=== PATIENT | male | born 1955 | race Caucasian/White ===

== ENCOUNTER 2019-03-26 22:02 | Emergency (ER) | payer SELFPAY ==
[~2019-03-26] VITALS: Ht 180.3 cm; Wt 117.9 kg
[2019-03-26 22:04] VITALS: BP 158/78
--- NOTE | 2019-03-26 22:38 | NUR ---
patient seen and cleared for discharge by Dr. Garcia. No assessment completed or nursing care provided.
[2019-03-26 22:40] VITALS: BP 158/78
--- NOTE | 2019-03-26 22:41 | NUR ---
Patient discharged with v/s stable. Written and verbal after care instructions given and explained. Patient verbalized understanding. Ambulatory with steady gait, in custody accompanied by nay GAMBINO. All questions addressed prior to discharge. Advised to follow up with PMD.
== END 2019-03-26 22:41 ==
LOC: MED 22:02
DX: Z04.1 Encounter for examination and observation following transport accident (principal); Z02.89 Encounter for other administrative examinations; Z98.890 Other specified postprocedural states; V89.2XXA Person injured in unspecified motor-vehicle accident, traffic, initial encounter; Y93.89 Activity, other specified; Y92.89 Other specified places as the place of occurrence of the external cause; Y99.8 Other external cause status
CPT/HCPCS: 99283

== ENCOUNTER 2020-04-22 12:11 | Inpatient (IN) | payer MEDICAID, SELFPAY ==
[~2020-04-22] VITALS: Ht 182.9 cm; Wt 117.9 kg
[2020-04-22 12:20] VITALS: BP 145/78
[2020-04-22] MEDS ORDERED: NACL 0.9% 1,000 ML IV ONE (12:40)
[2020-04-22] MEDS ORDERED: ACETAMINOPHEN EXTRA STRENGTH 500 MG TAB PO ONE (12:40)
[2020-04-22 13:12] LABS: BASOPHILS # (AUTO) 0.1 K/uL (0.00-0.22); BASOPHILS % (AUTO) 0.6 % (0.0-2.0); EOSINOPHILS # (AUTO) 0.1 K/uL (0-0.4); EOSINOPHILS % (AUTO) 0.8 % (0.0-4.0); LYMPHOCYTES # (AUTO) 1.8 K/uL (2.0-11.5); LYMPHOCYTES % (AUTO) 17.8 % (20.5-51.1); MEAN CORPUSCULAR HEMOGLOBIN 32 pg (27-31); MEAN CORPUSCULAR HGB CONC 34 g/dL (33-37); MEAN CORPUSCULAR VOLUME 93.8 fL (80-94); MONOCYTES # (AUTO) 0.6 K/uL (0.8-1.0); MONOCYTES % (AUTO) 6.2 % (1.7-9.3); NEUTROPHILS # (AUTO) 7.5 K/uL (1.8-7.7); NEUTROPHILS % (AUTO) 74.6 % (42.2-75.2); PLATELET COUNT (AUTO) 112 K/uL (140-450); WHITE BLOOD COUNT (AUTO) 10.1 K/uL (4.8-10.8)
[2020-04-22 13:18] LABS: HEMATOCRIT 16.9 % (36-52); HEMOGLOBIN 5.8 g/dL (12.0-18.0)
[2020-04-22 13:24] LABS: ALBUMIN 2.5 g/dL (3.4-5.0); ANION GAP 13.5 (8-16); CARBON DIOXIDE 22.9 mmol/L (21-32); CREATININE 1.1 mg/dL (0.6-1.3); POTASSIUM 4.4 mmol/L (3.5-5.1); TOTAL BILIRUBIN 0.4 mg/dL (0.0-1.0)
[2020-04-22 15:22] LABS: PROTHROMBIN TIME 12.3 secs (10.8-13.4)
[2020-04-22] MEDS ORDERED: SODIUM PHOS / POTASSIUM PHOS 1 PKT PDR PO PRN (16:45)
[2020-04-22] MEDS: DEXT 5% /NACL 0.9% 1,000 ML IV SCH (16:45)
[2020-04-22] MEDS ORDERED: ONDANSETRON 4 MG/2 ML VIAL IM/IVP PRN (16:45)
[2020-04-22] MEDS: PANTOPRAZOLE 40 MG TABEC PO SCH (16:45)
[2020-04-22] MEDS ORDERED: HYDROcodone/APAP 5/325 MG 1 TAB TAB PO PRN (16:45)
[2020-04-22] MEDS ORDERED: ACETAMINOPHEN 325 MG TAB PO PRN (16:45)
[2020-04-22] MEDS ORDERED: DOCUSATE SODIUM 100 MG GELCAP PO PRN (16:45)
[2020-04-22] MEDS ORDERED: MAG SULF 2000 MG/WATER PREMIX 50 ML IV PRN (16:45)
[2020-04-22] MEDS ORDERED: MORPHINE SULFATE 2 MG/ML SYR IVP PRN (16:45)
[2020-04-22] MEDS ORDERED: POTASSIUM CHLORIDE 40 MEQ, LIDOCAINE MPF 1% 25 MG in NACL 0.9% 250 ML IV PRN (16:45)
[2020-04-22 17:07] LABS: MAGNESIUM 1.7 mg/dL (1.8-2.4); PHOSPHORUS 2.8 mg/dL (2.5-4.9)
[2020-04-22] MEDS ORDERED: MAG SULF 2000 MG/WATER PREMIX 50 ML IV SCH (18:40)
[2020-04-22 21:14] LABS: BASOPHILS # (AUTO) 0.2 K/uL (0.00-0.22); BASOPHILS % (AUTO) 1.5 % (0.0-2.0); EOSINOPHILS # (AUTO) 0.1 K/uL (0-0.4); EOSINOPHILS % (AUTO) 0.5 % (0.0-4.0); LYMPHOCYTES # (AUTO) 1.4 K/uL (2.0-11.5); LYMPHOCYTES % (AUTO) 13.5 % (20.5-51.1); MEAN CORPUSCULAR HEMOGLOBIN 30 pg (27-31); MEAN CORPUSCULAR HGB CONC 33 g/dL (33-37); MEAN CORPUSCULAR VOLUME 90.3 fL (80-94); MONOCYTES # (AUTO) 0.6 K/uL (0.8-1.0); MONOCYTES % (AUTO) 5.8 % (1.7-9.3); NEUTROPHILS # (AUTO) 8.3 K/uL (1.8-7.7); NEUTROPHILS % (AUTO) 78.7 % (42.2-75.2); PLATELET COUNT (AUTO) 98 K/uL (140-450); RED BLOOD CELL COUNT(AUTO) 1.85 MIL/uL (4.20-6.10); RED CELL DISTRIBUTION WIDTH 18.8 % (11.6-13.7); WHITE BLOOD COUNT (AUTO) 10.6 K/uL (4.8-10.8)
[2020-04-22 21:19] LABS: HEMATOCRIT 16.7 % (36-52); HEMOGLOBIN 5.5 g/dL (12.0-18.0)
[2020-04-22] MEDS ORDERED: OCTREOTIDE ACETATE 1000 MCG/5 ML VIAL ONE (21:36)
[2020-04-22] MEDS ORDERED: MIRTAZAPINE 15 MG TAB ONE (22:01)
[2020-04-22] MEDS: OCTREOTIDE ACETATE 1.25 MG in NACL 0.9% 250 ML IV SCH (22:49)
[2020-04-23 04:49] VITALS: BP 151/53
[2020-04-23] MEDS: DEXT 5% /NACL 0.9% 1,000 ML IV SCH (05:15)
[2020-04-23 07:42] LABS: ANION GAP 11.7 (8-16); CARBON DIOXIDE 25.9 mmol/L (21-32); POTASSIUM 4.6 mmol/L (3.5-5.1)
[2020-04-23 08:00] VITALS: BP 98/50
[2020-04-23 08:01] LABS: BASOPHILS % (AUTO) 0.3 % (0.0-2.0); EOSINOPHILS # (AUTO) 0.1 K/uL (0-0.4); EOSINOPHILS % (AUTO) 0.7 % (0.0-4.0); LYMPHOCYTES # (AUTO) 1.8 K/uL (2.0-11.5); LYMPHOCYTES % (AUTO) 18.4 % (20.5-51.1); MEAN CORPUSCULAR HEMOGLOBIN 31 pg (27-31); MEAN CORPUSCULAR HGB CONC 34 g/dL (33-37); MONOCYTES # (AUTO) 0.7 K/uL (0.8-1.0); MONOCYTES % (AUTO) 6.9 % (1.7-9.3); NEUTROPHILS # (AUTO) 7.2 K/uL (1.8-7.7); NEUTROPHILS % (AUTO) 73.7 % (42.2-75.2); PLATELET COUNT (AUTO) 93 K/uL (140-450); RED BLOOD CELL COUNT(AUTO) 2.02 MIL/uL (4.20-6.10); RED CELL DISTRIBUTION WIDTH 18.3 % (11.6-13.7); WHITE BLOOD COUNT (AUTO) 9.7 K/uL (4.8-10.8)
[2020-04-23 08:07] LABS: HEMATOCRIT 18.2 % (36-52); HEMOGLOBIN 6.2 g/dL (12.0-18.0)
[2020-04-23] MEDS: PANTOPRAZOLE 40 MG TABEC PO SCH ×2 (08:59→21:22)
[2020-04-23] MEDS ORDERED: MIDAZOLAM 5 MG/5 ML VIAL ONE (09:18)
[2020-04-23] MEDS ORDERED: MIDAZOLAM 2 MG/2 ML VIAL ONE (09:18)
[2020-04-23] MEDS ORDERED: diphenhydrAMINE 50 MG/ML VIAL ONE (09:19)
[2020-04-23] MEDS ORDERED: fentaNYL citrate 0.05 MG/ML VIAL ONE (09:19)
[2020-04-23] MEDS ORDERED: fentaNYL citrate 0.05 MG/ML VIAL IVP ONE (10:45)
[2020-04-23] MEDS ORDERED: MIDAZOLAM 2 MG/2 ML VIAL IVP ONE (10:45)
[2020-04-23] MEDS ORDERED: LACTATED RINGERS 1,000 ML IV ONE (10:50)
[2020-04-23] MEDS ORDERED: MIDAZOLAM 2 MG/2 ML VIAL IVP SCH (11:15)
[2020-04-23] MEDS ORDERED: fentaNYL citrate 0.05 MG/ML VIAL IVP SCH (11:15)
[2020-04-23 12:00] VITALS: BP 147/63
[2020-04-23 12:16] LABS: BASOPHILS % (AUTO) 0.2 % (0.0-2.0); EOSINOPHILS # (AUTO) 0.1 K/uL (0-0.4); EOSINOPHILS % (AUTO) 0.7 % (0.0-4.0); LYMPHOCYTES # (AUTO) 2.8 K/uL (2.0-11.5); LYMPHOCYTES % (AUTO) 20.5 % (20.5-51.1); MEAN CORPUSCULAR HEMOGLOBIN 29 pg (27-31); MEAN CORPUSCULAR HGB CONC 33 g/dL (33-37); MEAN CORPUSCULAR VOLUME 90.1 fL (80-94); MONOCYTES % (AUTO) 7.1 % (1.7-9.3); NEUTROPHILS # (AUTO) 9.7 K/uL (1.8-7.7); NEUTROPHILS % (AUTO) 71.5 % (42.2-75.2); PLATELET COUNT (AUTO) 127 K/uL (140-450); RED BLOOD CELL COUNT(AUTO) 2.07 MIL/uL (4.20-6.10); RED CELL DISTRIBUTION WIDTH 18.1 % (11.6-13.7); WHITE BLOOD COUNT (AUTO) 13.6 K/uL (4.8-10.8)
[2020-04-23 13:15] LABS: HEMOGLOBIN 6.1 g/dL (12.0-18.0)
[2020-04-23 13:16] LABS: HEMATOCRIT 18.7 % (36-52)
[2020-04-23] MEDS ORDERED: DEXTROSE 50% 50 ML SYR IVP PRN (14:55)
[2020-04-23] MEDS: NACL 0.9% 1,000 ML IV SCH (15:01)
[2020-04-23 16:00] VITALS: BP 150/67
[2020-04-23] MEDS: BLOOD GLUCOSE MONITORING 1 DEV DEV FS SCH ×2 (16:30→21:00)
[2020-04-23 16:40] LABS: APPEARANCE,URINE CLEAR (CLEAR); BILIRUBIN,URINE NEGATIVE (NEGATIVE); BLOOD, URINE NEGATIVE (NEGATIVE); COLOR,URINE YELLOW (YELLOW); LEUKOCYTE ESTERASE ,URINE NEGATIVE (NEGATIVE); NITRITE, URINE NEGATIVE (NEGATIVE); PH,URINE 5.5 (5.0-9.0); UGLUCOSE 3+ (NEGATIVE)
[2020-04-23 16:52] LABS: RBC,URINE 0-5 /HPF (0-5); WBC,URINE 0-5 /HPF (0-5)
[2020-04-23] MEDS: OCTREOTIDE ACETATE 1.25 MG in NACL 0.9% 250 ML IV SCH (17:55)
[2020-04-23] MEDS: INSULIN LISPRO SLIDING SCALE 100 UNITS/ML VIAL SUBQ PRN ×2 (17:56→22:05)
[2020-04-23 20:00] VITALS: BP 113/64
[2020-04-23] MEDS: PROPRANOLOL 20 MG TAB PO SCH (21:23)
[2020-04-23 22:25] LABS: BASOPHILS # (AUTO) 0.1 K/uL (0.00-0.22); BASOPHILS % (AUTO) 1.2 % (0.0-2.0); EOSINOPHILS # (AUTO) 0.2 K/uL (0-0.4); EOSINOPHILS % (AUTO) 1.8 % (0.0-4.0); LYMPHOCYTES # (AUTO) 2.2 K/uL (2.0-11.5); MEAN CORPUSCULAR HEMOGLOBIN 30 pg (27-31); MEAN CORPUSCULAR HGB CONC 34 g/dL (33-37); MEAN CORPUSCULAR VOLUME 89.4 fL (80-94); MONOCYTES # (AUTO) 0.9 K/uL (0.8-1.0); MONOCYTES % (AUTO) 8.6 % (1.7-9.3); NEUTROPHILS # (AUTO) 6.6 K/uL (1.8-7.7); NEUTROPHILS % (AUTO) 66.4 % (42.2-75.2); PLATELET COUNT (AUTO) 102 K/uL (140-450); RED BLOOD CELL COUNT(AUTO) 2.02 MIL/uL (4.20-6.10); RED CELL DISTRIBUTION WIDTH 17.4 % (11.6-13.7)
[2020-04-23 22:29] LABS: HEMOGLOBIN 6.1 g/dL (12.0-18.0)
[2020-04-24] VITALS: BP 91/50
[2020-04-24 04:00] VITALS: BP 92/49
[2020-04-24] MEDS: INSULIN LISPRO SLIDING SCALE 100 UNITS/ML VIAL SUBQ PRN ×4 (06:42→20:48)
[2020-04-24] MEDS: BLOOD GLUCOSE MONITORING 1 DEV DEV FS SCH ×4 (06:45→20:47)
[2020-04-24 08:00] VITALS: BP 96/44
[2020-04-24] MEDS: PROPRANOLOL 20 MG TAB PO SCH ×2 (08:36→20:44)
[2020-04-24] MEDS: PANTOPRAZOLE 40 MG TABEC PO SCH ×2 (08:45→20:43)
[2020-04-24] MEDS: NACL 0.9% 1,000 ML IV SCH (08:46)
[2020-04-24] MEDS: OCTREOTIDE ACETATE 1.25 MG in NACL 0.9% 250 ML IV SCH (08:50)
[2020-04-24] MEDS ORDERED: PROPRANOLOL 20 MG TAB PO SCH (09:00)
[2020-04-24 09:46] LABS: BASOPHILS % (AUTO) 0.3 % (0.0-2.0); EOSINOPHILS # (AUTO) 0.1 K/uL (0-0.4); EOSINOPHILS % (AUTO) 1.3 % (0.0-4.0); HEMATOCRIT 20.9 % (36-52); LYMPHOCYTES # (AUTO) 1.4 K/uL (2.0-11.5); LYMPHOCYTES % (AUTO) 16.8 % (20.5-51.1); MEAN CORPUSCULAR HEMOGLOBIN 29 pg (27-31); MEAN CORPUSCULAR HGB CONC 33 g/dL (33-37); MEAN CORPUSCULAR VOLUME 90.1 fL (80-94); MONOCYTES # (AUTO) 0.6 K/uL (0.8-1.0); MONOCYTES % (AUTO) 6.8 % (1.7-9.3); NEUTROPHILS # (AUTO) 6.4 K/uL (1.8-7.7); NEUTROPHILS % (AUTO) 74.8 % (42.2-75.2); PLATELET COUNT (AUTO) 97 K/uL (140-450); RED BLOOD CELL COUNT(AUTO) 2.32 MIL/uL (4.20-6.10); RED CELL DISTRIBUTION WIDTH 16.8 % (11.6-13.7); WHITE BLOOD COUNT (AUTO) 8.5 K/uL (4.8-10.8)
[2020-04-24 09:52] LABS: HEMOGLOBIN 6.8 g/dL (12.0-18.0)
[2020-04-24 10:03] LABS: ANION GAP 9.4 (8-16); CARBON DIOXIDE 24.7 mmol/L (21-32); CREATININE 0.9 mg/dL (0.6-1.3); POTASSIUM 4.1 mmol/L (3.5-5.1)
[2020-04-24 11:12] LABS: HEMATOCRIT 19.2 % (36-52); HEMOGLOBIN 6.4 g/dL (12.0-18.0)
[2020-04-24 12:00] VITALS: BP 113/48
[2020-04-24 16:00] VITALS: BP 111/57
[2020-04-24 20:00] VITALS: BP 116/56
[2020-04-25] VITALS: BP 95/47
[2020-04-25] MEDS: NACL 0.9% 1,000 ML IV SCH ×2 (00:15→04:00)
[2020-04-25 04:00] VITALS: BP 106/36
[2020-04-25] MEDS: BLOOD GLUCOSE MONITORING 1 DEV DEV FS SCH ×2 (06:19→11:59)
[2020-04-25] MEDS: INSULIN LISPRO SLIDING SCALE 100 UNITS/ML VIAL SUBQ PRN ×2 (06:20→12:00)
[2020-04-25 06:40] LABS: MAGNESIUM 1.9 mg/dL (1.8-2.4); PHOSPHORUS 3.2 mg/dL (2.5-4.9)
[2020-04-25 06:47] LABS: BASOPHILS % (AUTO) 0.3 % (0.0-2.0); EOSINOPHILS # (AUTO) 0.1 K/uL (0-0.4); EOSINOPHILS % (AUTO) 2.4 % (0.0-4.0); HEMOGLOBIN 7.1 g/dL (12.0-18.0); LYMPHOCYTES % (AUTO) 20.5 % (20.5-51.1); MEAN CORPUSCULAR HEMOGLOBIN 30 pg (27-31); MEAN CORPUSCULAR HGB CONC 34 g/dL (33-37); MONOCYTES # (AUTO) 0.4 K/uL (0.8-1.0); MONOCYTES % (AUTO) 9.4 % (1.7-9.3); NEUTROPHILS # (AUTO) 3.2 K/uL (1.8-7.7); NEUTROPHILS % (AUTO) 67.4 % (42.2-75.2); PLATELET COUNT (AUTO) 69 K/uL (140-450); RED BLOOD CELL COUNT(AUTO) 2.38 MIL/uL (4.20-6.10); RED CELL DISTRIBUTION WIDTH 15.8 % (11.6-13.7); WHITE BLOOD COUNT (AUTO) 4.7 K/uL (4.8-10.8)
[2020-04-25 06:48] LABS: ANION GAP 8.8 (8-16); CARBON DIOXIDE 27.6 mmol/L (21-32); CREATININE 0.8 mg/dL (0.6-1.3); POTASSIUM 4.4 mmol/L (3.5-5.1)
[2020-04-25 08:00] VITALS: BP 110/54
[2020-04-25] MEDS: PANTOPRAZOLE 40 MG TABEC PO SCH (09:11)
[2020-04-25] MEDS: PROPRANOLOL 20 MG TAB PO SCH (09:11)
[2020-04-25 12:00] VITALS: BP 146/65
[2020-04-25] MEDS ORDERED: OMEP40EC14 PO (12:44)
[2020-04-25] MEDS ORDERED: PROP20TA29 PO (12:44)
[2020-04-25 14:55] VITALS: BP 146/69
== END 2020-04-25 15:35 | disposition home or self-care (01) | DRG 241 ==
LOC: MED 12:11 → MTU 16:39
PROVIDERS: ADMIT Hospitalist; ATTEND Hospitalist
PROC: 30233N1 Transfusion of Nonautologous Red Blood Cells into Peripheral Vein, Percutaneous Approach (ICD-10-PCS; 2020-04-22)
PROC: 0DJ08ZZ Inspection of Upper Intestinal Tract, Via Natural or Artificial Opening Endoscopic (ICD-10-PCS; principal; 2020-04-23 09:30)
DX: K25.4 Chronic or unspecified gastric ulcer with hemorrhage (principal); I86.4 Gastric varices; E43 Unspecified severe protein-calorie malnutrition; E83.42 Hypomagnesemia; D62 Acute posthemorrhagic anemia; E83.51 Hypocalcemia; F10.20 Alcohol dependence, uncomplicated; E66.01 Morbid (severe) obesity due to excess calories; R73.9 Hyperglycemia, unspecified; R16.0 Hepatomegaly, not elsewhere classified; K57.30 Diverticulosis of large intestine without perforation or abscess without bleeding; K40.20 Bilateral inguinal hernia, without obstruction or gangrene, not specified as recurrent; K42.9 Umbilical hernia without obstruction or gangrene; R18.8 Other ascites; K76.0 Fatty (change of) liver, not elsewhere classified; K76.9 Liver disease, unspecified; D69.6 Thrombocytopenia, unspecified; I85.00 Esophageal varices without bleeding; Z20.822 Contact with and (suspected) exposure to COVID-19; K20.90 Esophagitis, unspecified without bleeding; Z68.35 Body mass index [BMI] 35.0-35.9, adult; Z80.8 Family history of malignant neoplasm of other organs or systems; E11.65 Type 2 diabetes mellitus with hyperglycemia
CPT/HCPCS: 36415; 71045; 76705; 80048; 80053; 81001; 82948; 83036; 83690; 83735; 83880; 84100; 84484; 85018; 85025; 85610; 85730; 86886; 86900; 86901; 86920; 87081; 87804; 93005; 96360; 96361; 99285; J1200; J1815; J2250; J2354; J3010; J7030; J7042; P9016; Q9967

== ENCOUNTER 2020-04-28 14:40 | Emergency (ER) | payer MEDICAID, SELFPAY ==
[~2020-04-28] VITALS: Ht 180.3 cm; Wt 136.1 kg
[~2020-04-28 14:40] MED LIST: OMEP40EC14 PO; PROP20TA29 PO
[2020-04-28 14:45] VITALS: BP 141/70
--- NOTE | 2020-04-28 14:52 | NUR ---
Pt ambulated to ER bed 12.
--- NOTE | 2020-04-28 14:55 | NUR ---
64 Y/O MALE REQUESTING TO HAVE MEDICATION CHANGED. STATES HE DOES NOT LIKE HOW IT MAKES HIM FEEL. PT STATES HE FEELS DROWSY AND FEET SWELLING. RX PROPANOLOL 20MG BID PMH: LIVER CIRRHOSIS NKA
--- NOTE | 2020-04-28 14:57 | NUR ---
Dr. Dickson at pt bedside for further evaluation.
--- NOTE | 2020-04-28 15:21 | NUR ---
PATIENT LEFT WITHOUT BEING SEEN BY DR. VILLAFANA. NO FURTHER CARE PROVIDED FOR PATIENT.
--- NOTE | 2020-04-28 15:25 | NUR ---
PATIENT ELOPED FROM FACILITY. DISCHARGE INSTRUCTIONS NOT GIVEN TO PATIENT. DR. gordon NOTIFIED.
[2020-04-28 15:26] VITALS: BP 141/70
== END 2020-04-28 15:21 | disposition left against medical advice (07) ==
LOC: MED 14:40
DX: Z48.00 Encounter for change or removal of nonsurgical wound dressing (principal); Z53.21 Procedure and treatment not carried out due to patient leaving prior to being seen by health care provider

== ENCOUNTER 2020-05-02 10:12 | Inpatient (IN) | payer MEDICAID, SELFPAY ==
[~2020-05-02] VITALS: Ht 182.9 cm; Wt 139.7 kg
[2020-05-02 10:14] VITALS: BP 137/73
--- NOTE | 2020-05-02 10:19 | NUR ---
Pt ambulated to ER bed 12.
--- NOTE | 2020-05-02 10:26 | NUR ---
64 Y/O MALE REQUESTING TO HAVE MEDICATION CHANGED. STATES HE DOES NOT LIKE HOW IT MAKES HIM FEEL. PT STATES HE FEELS DROWSY AND FEET SWELLING. RX PROPANOLOL 20MG BID PMH: LIVER CIRRHOSIS NKA
--- NOTE | 2020-05-02 10:40 | NUR ---
Dr. Syed at pt bedside for further evaluation.
--- NOTE | 2020-05-02 10:47 | NUR ---
LAB AT BEDSIDE.
[2020-05-02 10:59] LABS: BASOPHILS % (AUTO) 1.1 % (0.0-2.0); EOSINOPHILS # (AUTO) 0.1 K/uL (0-0.4); EOSINOPHILS % (AUTO) 1.6 % (0.0-4.0); LYMPHOCYTES # (AUTO) 0.7 K/uL (2.0-11.5); LYMPHOCYTES % (AUTO) 17.1 % (20.5-51.1); MEAN CORPUSCULAR HEMOGLOBIN 27 pg (27-31); MEAN CORPUSCULAR HGB CONC 32 g/dL (33-37); MEAN CORPUSCULAR VOLUME 85.1 fL (80-94); MONOCYTES # (AUTO) 0.5 K/uL (0.8-1.0); MONOCYTES % (AUTO) 13.1 % (1.7-9.3); NEUTROPHILS # (AUTO) 2.7 K/uL (1.8-7.7); NEUTROPHILS % (AUTO) 67.1 % (42.2-75.2); PLATELET COUNT (AUTO) 98 K/uL (140-450); RED BLOOD CELL COUNT(AUTO) 2.29 MIL/uL (4.20-6.10); RED CELL DISTRIBUTION WIDTH 18.6 % (11.6-13.7); WHITE BLOOD COUNT (AUTO) 4.1 K/uL (4.8-10.8)
[2020-05-02 11:07] LABS: HEMATOCRIT 19.5 % (36-52); HEMOGLOBIN 6.2 g/dL (12.0-18.0)
[2020-05-02 11:08] LABS: ANION GAP 11.1 (8-16); CARBON DIOXIDE 24.3 mmol/L (21-32); CREATININE 1.1 mg/dL (0.6-1.3); POTASSIUM 4.4 mmol/L (3.5-5.1)
[2020-05-02 11:14] LABS: ALBUMIN 2.6 g/dL (3.4-5.0); BILIRUBIN,DIRECT 0.1 mg/dL (0.0-0.3); TOTAL BILIRUBIN 0.4 mg/dL (0.0-1.0)
[2020-05-02] MEDS ORDERED: cefTRIAXone 1,000 MG in LIDOCAINE MPF 1% 2.1 ML IM ONE (11:15)
[2020-05-02] MEDS ORDERED: OCTREOTIDE ACETATE 100 MCG/ML VIAL IV SCH (11:15)
[2020-05-02] MEDS ORDERED: OCTREOTIDE ACETATE 0.05 MG in NACL 0.9% 250 ML IV SCH (11:15)
[2020-05-02] MEDS ORDERED: cefTRIAXone 1,000 MG VIAL ONE (11:28)
[2020-05-02] MEDS ORDERED: LIDOCAINE MPF 1% 5 ML ONE (11:28)
--- NOTE | 2020-05-02 11:43 | NUR ---
Collected DOMINGO AMTUTE, and UA gave to slab worker.
[2020-05-02 11:44] LABS: PROTHROMBIN TIME 11.6 secs (10.8-13.4)
[2020-05-02] MEDS: OCTREOTIDE ACETATE 1.25 MG in NACL 0.9% 250 ML IV SCH (11:52)
--- NOTE | 2020-05-02 12:05 | NUR ---
BLOOD TRANSFUSION CONSENT OBTAINED AND SIGNED BY DR. MURPHY. PT REPORTS UNDERSTANDING R/T POTENTIAL NEED FOR BLOOD TRANSFUSION.
[2020-05-02] MEDS ORDERED: MAG SULF 2000 MG/WATER PREMIX 50 ML IV PRN (12:40)
[2020-05-02] MEDS ORDERED: POTASSIUM CHLORIDE 10 MEQ TABER PO PRN (12:40)
[2020-05-02] MEDS ORDERED: DEXTROSE 50% 50 ML SYR IVP PRN (12:40)
[2020-05-02] MEDS ORDERED: DOCUSATE SODIUM 100 MG GELCAP PO PRN (12:45)
[2020-05-02] MEDS ORDERED: MORPHINE SULFATE 2 MG/ML SYR IVP PRN (12:45)
[2020-05-02] MEDS ORDERED: ONDANSETRON 4 MG/2 ML VIAL IM/IVP PRN (12:45)
[2020-05-02] MEDS ORDERED: ACETAMINOPHEN 325 MG TAB PO PRN (12:45)
[2020-05-02] MEDS ORDERED: LORazepam 2 MG/ML VIAL IM/IVP PRN (12:45)
[2020-05-02] MEDS ORDERED: HYDROcodone/APAP 5/325 MG 1 TAB TAB PO PRN (12:45)
[2020-05-02] MEDS: FUROSEMIDE 40 MG/4 ML VIAL IVP SCH (12:50)
[2020-05-02 13:26] LABS: APPEARANCE,URINE CLEAR (CLEAR); BILIRUBIN,URINE NEGATIVE (NEGATIVE); BLOOD, URINE NEGATIVE (NEGATIVE); COLOR,URINE YELLOW (YELLOW); LEUKOCYTE ESTERASE ,URINE NEGATIVE (NEGATIVE); NITRITE, URINE NEGATIVE (NEGATIVE); PH,URINE 5.5 (5.0-9.0); UGLUCOSE 2+ (NEGATIVE)
[2020-05-02 13:32] LABS: BARBITURATE, URINE NEGATIVE ng/ml (NEG <=200); BENZODIAZEPINE, URINE NEGATIVE ng/mL (NEG <=200); CANNABINOID, URINE NEGATIVE ng/mL (NEG <=50); COCAINE, URINE NEGATIVE ng/mL (NEG <=300); OPIATE, URINE NEGATIVE ng/mL (NEG <=2000); PHENCYCLIDINE SCREEN,URINE NEGATIVE ng/mL (NEG <=25)
[2020-05-02 13:38] LABS: CHOL/HDL RATIO 3.3 (1-4.5); THYROID STIMULATING HORMONE 2.43 uIU/mL (0.34-3.74)
--- NOTE | 2020-05-02 13:46 | NUR ---
Gave report to JOSE Torres for pending transfer. ETA 15 minutes.
--- NOTE | 2020-05-02 13:46 | NUR ---
RECEIVED REPORT FROM ER NURSE. PT HAS LAC 20G INFUSING BLOOD TRANSFUSION AT 120ML/H. PT HAS BILATERAL LE EDEMA. PT ON ROOM AIR. WILL PREPARE ROOM FOR PT.
[2020-05-02 14:10] VITALS: BP 105/49
--- NOTE | 2020-05-02 14:15 | NUR ---
Patient will be admitted to care of Dr. BRANTLEY. Admited to tele. Will go to room 121A. Belongings list completed. Report to JOSE Torres.
--- NOTE | 2020-05-02 14:20 | NUR ---
BLOOD TRANSFUSION FINISHED. NO REACTION, PT IS STABLE, WILL CONTINUE TO MONITOR.
[2020-05-02 16:00] VITALS: BP 111/60
[2020-05-02] MEDS: NACL 0.9% 1,000 ML IV SCH (16:34)
--- NOTE | 2020-05-02 16:34 | NUR ---
ADMINISTERED SCHEDULED FLUIDS, PT TOLERATED WELL. PT IS STABLE, WILL CONTINUE TO MONITOR.
[2020-05-02] MEDS: BLOOD GLUCOSE MONITORING 1 DEV DEV FS SCH ×2 (16:51→19:34)
[2020-05-02 18:21] LABS: HEMATOCRIT 21.8 % (36-52)
[2020-05-02 18:37] LABS: HEMOGLOBIN 6.9 g/dL (12.0-18.0)
--- NOTE | 2020-05-02 18:39 | NUR ---
REPORTED CRITICAL LAB HGB: 6.9, HCT: 21.8. RECEIVED TORB FROM DR. BRANTLEY TO TRANSFUSION ANOTHER UNIT OF BLOOD.
--- NOTE | 2020-05-02 19:15 | NUR ---
ENDORSE PT TO NIGHT NURSE FOR CONTINUITY OF CARE
--- NOTE | 2020-05-02 19:16 | NUR ---
RECEIVED BEDSIDE REPORT FROM DAY RN. PT IS AAOX4. PT RESTING IN BED WATCHING TV. NO S/S OF DISTRESS. RESPIRATIONS ARE EQUAL AND UNLABORED ON ROOM AIR. LUNG SOUNDS ARE CLEAR. SKIN IS INTACT. IV ON LAC 20G NS INFUSING AT 10ML/H. PT IS NPO. DX GI BLEED. PT REPORT LBM THIS MORNING NO S/S OF BLEEDING. PENDING 1 MORE UNIT OF PRBC. POC DISCUSSED WITH PT. CALL LIGHT IS WITHIN REACH. WILL CONTINUE TO MONITOR.
--- NOTE | 2020-05-02 19:45 | NUR ---
RECEIVED CALL FROM MD LISSA SMITH TO OBTAIN CONSENT FOR COLOSCOPY TOMORROW AFTERNOON. GIVE HALF A GALLOON OF GOLYTELY [phone] AND THE OTHER HALF FROM [phone].
[2020-05-02 20:00] VITALS: BP 118/56
--- NOTE | 2020-05-02 20:12 | NUR ---
VSS. AISHA MEDICATION GIVEN PER ORDERS. CONSENT FOR COLOSCOPY OBTAINED PT AGREES WITH PROCEDURE NO FURTHER QUESTIONS AT THIS TIME. GOLYTELY GIVEN TO PT AND AT BEDSIDE. MED EDUCATION GIVEN PT VERBALIZED UNDERSTANDING. PT VERBALIZED HE WILL DRINK HALF THE GALLOON BEFORE MIDNIGHT. BEDSIDE COMMODE AT BEDSIDE. CALL LIGHT IS WITHIN REACH.
[2020-05-02] MEDS: PROPRANOLOL 20 MG TAB PO SCH (20:25)
[2020-05-02] MEDS ORDERED: BOWEL EVACUANT DRINK 4,000 ML PDS PO SCH (21:00)
--- NOTE | 2020-05-02 21:05 | NUR ---
SECOND UNIT OF PRBC STARTED AT THIS TIME. VSS. POSSIBLE ADVERSE REACTION EXPLAINED TO PT. CALL LIGHT IS WITHIN REACH. WILL MONITOR FREQUENTLY.
--- NOTE | 2020-05-02 22:13 | NUR ---
ASSISTED PT TO BEDSIDE COMMODE. PT WITH SMALL BROWN BM. ENCOURAGE PT TO KEEP DRINKING GOLYTELY. ALL NEEDS MET. CALL LIGHT IS WITHIN REACH.
--- NOTE | 2020-05-02 23:30 | NUR ---
SECOND UNIT OF PRBC COMPLETE NO ADVERSE REACTION NOTED. VSS. ALL NEEDS MET. CALL LIGHT IS WITHIN REACH.
[2020-05-02] MEDS: ZOLPIDEM 5 MG TAB PO PRN (23:53)
[2020-05-03] VITALS: BP_SYST 113; BP_SYST 99; BP_DIAS 46; BP_DIAS 49
--- NOTE | 2020-05-03 | NUR ---
VITAL SIGNS ARE WITHIN NORMAL LIMITS. ALL SAFETY MEASURES ARE IN PLACE. WILL CONTINUE TO MONITOR.
[2020-05-03 02:03] LABS: HEMATOCRIT 21.6 % (36-52)
--- NOTE | 2020-05-03 02:10 | NUR ---
MADE ROUNDS. PATIENT APPEARS TO BE ASLEEP. CHEST RISE AND FALL NOTED. CALL LIGHT IS WITHIN REACH.
[2020-05-03 04:00] VITALS: BP 99/49
--- NOTE | 2020-05-03 04:00 | NUR ---
VITAL SIGNS ARE WITHIN NORMAL LIMITS. ALL SAFETY MEASURES ARE IN PLACE.
[2020-05-03] MEDS: PANTOPRAZOLE 40 MG TABEC PO SCH (05:45)
[2020-05-03] MEDS: BLOOD GLUCOSE MONITORING 1 DEV DEV FS SCH ×4 (05:54→20:16)
--- NOTE | 2020-05-03 05:54 | NUR ---
BLOOD SUGAR 109 NO COVERAGE NEEDED. AISHA PROTONIX GIVEN AND OTHER HALF OF GOLYTELY STARTED. WILL ENCOURAGE PATIENT TO DRINK AND MONITOR. BEDSIDE COMMODE AT BEDSIDE. CALL LIGHT IS WITHIN REACH.
[2020-05-03] MEDS ORDERED: BOWEL EVACUANT DRINK 4,000 ML PDS PO SCH (06:00)
[2020-05-03 06:45] LABS: ANION GAP 10.7 (8-16); CREATININE 0.9 mg/dL (0.6-1.3); POTASSIUM 4.7 mmol/L (3.5-5.1)
[2020-05-03 06:49] LABS: PHOSPHORUS 3.8 mg/dL (2.5-4.9)
--- NOTE | 2020-05-03 06:50 | NUR ---
ASSISTED PATIENT TO COMMODE BOWEL STILL NOT CLEAR. PT STILL HAS APPROX 1/3 OF A GALLOON REMAINING. ENCOURAGED PT TO KEEP DRINKING. CALL LIGHT IS WITHIN REACH.
--- NOTE | 2020-05-03 07:30 | NUR ---
GAVE BEDSIDE REPORT TO DAY RN. PT ENDORSED IN STABLE CONDITION.
--- NOTE | 2020-05-03 07:43 | NUR ---
REC'D REPORT FROM TAR LEVELER NURSE FOR CONTINUITY OF CARE, PT A/Ox4, RA. CALL LIGHT WITHIN REACH. NO SIGN OF DISTRESS.
[2020-05-03 07:54] LABS: BASOPHILS % (AUTO) 0.4 % (0.0-2.0); EOSINOPHILS # (AUTO) 0.1 K/uL (0-0.4); EOSINOPHILS % (AUTO) 1.8 % (0.0-4.0); HEMATOCRIT 21.4 % (36-52); LYMPHOCYTES # (AUTO) 0.6 K/uL (2.0-11.5); LYMPHOCYTES % (AUTO) 15.6 % (20.5-51.1); MEAN CORPUSCULAR HEMOGLOBIN 27 pg (27-31); MEAN CORPUSCULAR HGB CONC 33 g/dL (33-37); MEAN CORPUSCULAR VOLUME 83.5 fL (80-94); MONOCYTES # (AUTO) 0.4 K/uL (0.8-1.0); MONOCYTES % (AUTO) 9.5 % (1.7-9.3); NEUTROPHILS # (AUTO) 2.8 K/uL (1.8-7.7); NEUTROPHILS % (AUTO) 72.7 % (42.2-75.2); PLATELET COUNT (AUTO) 77 K/uL (140-450); RED BLOOD CELL COUNT(AUTO) 2.57 MIL/uL (4.20-6.10); RED CELL DISTRIBUTION WIDTH 20.3 % (11.6-13.7); WHITE BLOOD COUNT (AUTO) 3.9 K/uL (4.8-10.8)
[2020-05-03 08:00] VITALS: BP 115/57
[2020-05-03 08:08] LABS: T4 (THYROXINE) 5.7 ug/dL (4.5-12.0)
[2020-05-03] MEDS: PROPRANOLOL 20 MG TAB PO SCH (09:00)
[2020-05-03] MEDS: FUROSEMIDE 40 MG/4 ML VIAL IVP SCH (09:00)
[2020-05-03] MEDS ORDERED: FUROSEMIDE 40 MG/4 ML VIAL IVP SCH (09:00)
--- NOTE | 2020-05-03 09:01 | NUR ---
PT CURRENTLY DRINKING BOWEL PREP, STOOL IS YELLOW, WATERY WITH MINIMAL STOOL PARTICLES. DISCUSSED THE IMPORTANCE OF DRINKING ENTIRE PREP FOR STOOL TO BE COMPLETELY ELIMINATED FROM BOWEL. PT TOLERATING PREP WELL. WILL CONTINUE TO MONITOR
--- NOTE | 2020-05-03 09:16 | NUR ---
PATIENT HAS BEEN SCREENED AND CATEGORIZED MODERATE NUTRITION RISK. PATIENT WILL BE SEEN WITHIN 3-5 DAYS OF ADMISSION. 05/05/20 05/07/[address]
--- NOTE | 2020-05-03 09:50 | NUR ---
DID NOT ADMINISTER MEDICATIONS PRESCRIBED AT 9:00AM, PT'S BLOOD PRESSURE AND PULSE ON LOWER END OF PARAMETERS, DISCUSSED WITH PATIENT AND VERBALLY AGREED, DISCUSSED SIDE EFFECTS OF MEDICATIONS AND POTENTIAL TO BECOME HYPOTENSIVE. WILL CONTINUE TO MONITOR PT'S RESPONSE TO BOWEL PREP, STOOL CONTINUES TO BE BROWN WITH SCANT STOOL PARTICLES.
[2020-05-03] MEDS: OCTREOTIDE ACETATE 1.25 MG in NACL 0.9% 250 ML IV SCH (10:43)
--- NOTE | 2020-05-03 10:43 | NUR ---
DISCONTINUED SANDOSTATIN ON PT'S EMAR, PER PHARMACY THIS WAS AN ORDER FROM [facility]
[2020-05-03] MEDS ORDERED: ACETAMINOPHEN 325 MG TAB PO SCH (10:45)
--- NOTE | 2020-05-03 11:09 | NUR ---
DC PLANNIN YRS OLD MALE PATIENT WAS ADMITTED FROM HOME WITH A DX OF GI BLEED. PT HAS A HX OF CIRRHOSIS AND ESOPHAGEAL VARICES. H/H 6.2/19.5 TRANSFUSED 2 UNITS PRBC H/H 7.0/21.4 . CONSULTED WITH GI DR ALCARAZ SCHEDULE FOR COLONOSCOPY. DC PLAN TO GO HOME WHEN STABLE CM TO FOLLOW.
--- NOTE | 2020-05-03 11:20 | NUR ---
REC'D CALL FROM LAB, BLOOD UNIT READY FOR COLLECTION. PT'S L.AC 20G IV ACCESS, PATENT. WILL FOLLOW WITH TRANSFUSION.
--- NOTE | 2020-05-03 11:51 | NUR ---
SOCIAL WORK NOTE: Patient's Orientation Person Situation Place Time Information Provided By PATIENT Comments SW MET PATIENT AT BEDSIDE TO COMPLETE ASSESSMENT. Assistant Art Director, Realtionship and Phone Number JOJO COOPER [phone] Healthcare Power of Amusement Park Ride Mechanic No Does Patient Have a POLST No Identifying Problems No Social Work Triggers Is A Social Work Consult Needed No Mandate Report Filed No Explanation Of Identifying Problems PATIENT IS A 64-YEAR-OLD MALE ADMITTED FOR GASTROINTESTINAL BLEED. PATIENT HAS PMHX OF CIRRHOSIS. PATIENT DENIED SUBSTANCE ABUSE OR MENTAL HEALTH HX. PATIENT REFUSED SUBSTANCE ABUSE RESOURCES. Admitted From Home Pre-Admission Level Of Functioning Status Independent/Ambulatory Prior Resources/Services Used In Last 12 Months No Prior Resources Used Prior DME No Prior DME Used Dialysis Comments N/A Living Situation Apartment Lives Alone Patient Had Caregiver No Home Support No Caregiver Issues Financial Issues No Known Financial Issue Referral To The Financial Counselor Needed No Factors/Needs No D/C Needs Identified Pt/Rep Participated In Discharge Plan Yes Patient/Family Agress With Discharge Plan Yes Discharge Plan Comments TENTATIVE DISCHARGE PLAN IS FOR PATIENT TO RETURN HOME. DC Plan Status Initiated
[2020-05-03 12:00] VITALS: BP 145/86
[2020-05-03] MEDS ORDERED: diphenhydrAMINE 50 MG/ML VIAL ONE ×2 (12:36→13:24)
[2020-05-03] MEDS ORDERED: MIDAZOLAM 2 MG/2 ML VIAL ONE (12:36)
[2020-05-03] MEDS ORDERED: fentaNYL citrate 0.05 MG/ML VIAL ONE ×2 (12:37→13:24)
[2020-05-03] MEDS: NACL 0.9% 1,000 ML IV SCH (12:45)
--- NOTE | 2020-05-03 13:18 | NUR ---
PT OFF FLOOR, TAKEN TO OR FOR COLONOSCOPY/EGD. PT CURRENTLY TRANSFUSING 1 UNIT PRBC. PT STABLE UPON TRANSFER
[2020-05-03] MEDS ORDERED: MIDAZOLAM 5 MG/5 ML VIAL ONE (13:24)
[2020-05-03] MEDS ORDERED: LIDOCAINE 2% 100 MG/5 ML UJET TP ONE ×2 (13:24→14:35)
[2020-05-03] MEDS ORDERED: MEPERIDINE 25 MG/ML SYR ONE (13:39)
[2020-05-03] MEDS ORDERED: fentaNYL citrate 0.05 MG/ML VIAL IVP ONE (14:35)
[2020-05-03] MEDS ORDERED: MIDAZOLAM 2 MG/2 ML VIAL IVP ONE (14:35)
[2020-05-03] MEDS ORDERED: MEPERIDINE 25 MG/ML SYR IVP ONE (14:35)
[2020-05-03] MEDS ORDERED: SIMETHICONE 40 MG/0.6 ML PO ONE (14:35)
[2020-05-03] MEDS ORDERED: SIMETHICONE 40 MG/0.6 ML ONE (14:37)
--- NOTE | 2020-05-03 15:04 | NUR ---
VERIFIED WITH PATIENT REGARDING FLU SHOT, HE DOES NOT WISH TO GET IT AT THIS TIME AND WOULD LIKE NURSE TO STOP ASKING HIM.
[2020-05-03 16:00] VITALS: BP 108/51
--- NOTE | 2020-05-03 16:45 | NUR ---
BLOOD FINGER GLUCOSE 156, PT DECLINED INSULIN COVERAGE, EDUCATION WAS GIVEN ON THE MOA OF INSULIN AND RISKS REGARDING HYPERGLYCEMIA AND HYPOGLYCEMIA
--- NOTE | 2020-05-03 19:20 | NUR ---
RECEIVING PATIENT FROM AM NURSE FOR CONTINUITY OF CARE. PATIENT IS A/A/O X4. RESTING IN BED. RESPIRATORY EVEN AND UNLABORED, ON ROOM AIR, NO SIGN OF DISTRESS NOTED. SKIN WARM, DRY, INTACT AND NON-DIAPHORETIC. IV ON LEFT AC 20G SALINE LOCK. PLAN OF CARE DISCUSSED. PT VERBALIZED UNDERSTANDING. CALL LIGHT WITHIN REACH. WILL CONTINUE TO MONITOR.
[2020-05-03 19:55] LABS: HEMATOCRIT 25.8 % (36-52); HEMOGLOBIN 8.3 g/dL (12.0-18.0)
[2020-05-03 20:00] VITALS: BP 119/56
--- NOTE | 2020-05-03 20:16 | NUR ---
BLOOD SUGAR CHECK 196. 2 UNITS INSULIN WAS GIVEN ORDER. PATIENT IS AWAKE IN BED. NO SIGN OF DISTRESS NOTED. WILL CONTINUE TO MONITOR.
[2020-05-03] MEDS: INSULIN LISPRO SLIDING SCALE 100 UNITS/ML VIAL SUBQ PRN (20:19)
[2020-05-03] MEDS: ZOLPIDEM 5 MG TAB PO PRN (21:16)
--- NOTE | 2020-05-03 21:16 | NUR ---
PATIENT REQUESTS AMBIEN FOR SLEEP. AMBIEN PRN WAS GIVEN, PATIENT TOLERATED. CALL LIGHT WITHIN REACH. WILL CONTINUE TO MONITOR.
--- NOTE | 2020-05-04 | NUR ---
VITAL SIGNS ARE WITHIN NORMAL LIMITS. ALL SAFETY MEASURES ARE IN PLACE. CALL LIGHT IS WITHIN REACH
[2020-05-04 02:00] VITALS: BP 103/75
--- NOTE | 2020-05-04 02:00 | NUR ---
ROUND CHECK. PATIENT IS SLEEPING. CHEST RISE AND FALL NOTED. WILL CONTINUE TO MONITOR.
[2020-05-04 04:00] VITALS: BP 129/67
--- NOTE | 2020-05-04 05:00 | NUR ---
ROUND CHECK. PATIENT AWAKE. NO SIGN OF DISTRESS NOTED. WILL CONTINUE TO MONITOR.
[2020-05-04 05:43] LABS: ANION GAP 10.8 (8-16); BASOPHILS % (AUTO) 0.3 % (0.0-2.0); CARBON DIOXIDE 26.3 mmol/L (21-32); CREATININE 0.9 mg/dL (0.6-1.3); HEMATOCRIT 23.2 % (36-52); HEMOGLOBIN 7.5 g/dL (12.0-18.0); LYMPHOCYTES # (AUTO) 0.5 K/uL (2.0-11.5); LYMPHOCYTES % (AUTO) 12.7 % (20.5-51.1); MEAN CORPUSCULAR HEMOGLOBIN 28 pg (27-31); MEAN CORPUSCULAR HGB CONC 32 g/dL (33-37); MEAN CORPUSCULAR VOLUME 84.8 fL (80-94); MONOCYTES # (AUTO) 0.4 K/uL (0.8-1.0); MONOCYTES % (AUTO) 9.9 % (1.7-9.3); NEUTROPHILS # (AUTO) 3.3 K/uL (1.8-7.7); NEUTROPHILS % (AUTO) 76.1 % (42.2-75.2); PLATELET COUNT (AUTO) 70 K/uL (140-450); POTASSIUM 4.1 mmol/L (3.5-5.1); RED BLOOD CELL COUNT(AUTO) 2.73 MIL/uL (4.20-6.10); RED CELL DISTRIBUTION WIDTH 19.4 % (11.6-13.7); WHITE BLOOD COUNT (AUTO) 4.3 K/uL (4.8-10.8)
[2020-05-04 05:45] LABS: MAGNESIUM 2.1 mg/dL (1.8-2.4); PHOSPHORUS 3.6 mg/dL (2.5-4.9)
[2020-05-04] MEDS: BLOOD GLUCOSE MONITORING 1 DEV DEV FS SCH ×2 (06:40→12:11)
--- NOTE | 2020-05-04 06:40 | NUR ---
BLOOD SUGAR CHECK 164, 2 UNITS INSULIN WAS GIVEN. PATIENT TOLERATED WELL. WILL CONTINUE TO MONITOR.
[2020-05-04] MEDS: INSULIN LISPRO SLIDING SCALE 100 UNITS/ML VIAL SUBQ PRN ×2 (06:41→12:16)
[2020-05-04] MEDS: PANTOPRAZOLE 40 MG TABEC PO SCH (06:44)
--- NOTE | 2020-05-04 07:30 | NUR ---
ENDORSED PATIENT TO DAY SHIFT FOR CONTINUITY OF CARE. PATIENT IS SLEEPING. CHEST RISE AND FALL NOTED. PATIENT IS STABLE.
--- NOTE | 2020-05-04 07:31 | NUR ---
REC'D REPORT FROM RANGE RIDER NURSE, PT RA. SLEEPING. STABLE. NO SIGN OF DISTRESS
--- NOTE | 2020-05-04 07:33 | NUR ---
RECEIVED PATIENT ALERT, FOLLOWS COMMAND. NO S/S OF SOB. DENIES CHEST PAIN. ON IVF NS AT 60 ML/HR TO R AC [address] AFEBRILE. ON NPO FOR PROCEDURE. PT OFF TO OR WITH NO S/S OF DISTRESS. REPORT RECEIVED FROM TECHNOLOGY STRATEGIST RN. POC DISCUSSED. Addendum: 05/04/20 at 0848 by Navid Rodriguez RN WRONG PATIENT.
[2020-05-04 08:00] VITALS: BP 131/63
[2020-05-04] MEDS: FUROSEMIDE 40 MG/4 ML VIAL IVP SCH (09:48)
--- NOTE | 2020-05-04 09:54 | NUR ---
ADMINISTERED MEDICATIONS PER MD ORDER, MOA AND SIDE EFFECTS DISCUSSED WITH PATIENT WHO VERBALLY UNDERSTOOD. IV PATENT, FLUSHED PRIOR TO AND AFTER ADMINISTRATION. PT TOLERATED IV ADMINISTRATION WELL.
--- NOTE | 2020-05-04 10:24 | NUR ---
PT DOING WELL, STABLE NO SIGN OF DISTRESS. WATCHING TV. WILL CONTINUE TO MONITOR
[2020-05-04] MEDS ORDERED: SPIR50TA PO (10:45)
[2020-05-04] MEDS ORDERED: FURO-570 PO (10:45)
[2020-05-04] MEDS ORDERED: OMEP40EC24 PO (10:45)
[2020-05-04] MEDS: OCTREOTIDE ACETATE 1.25 MG in NACL 0.9% 250 ML IV SCH (11:28)
[2020-05-04 12:00] VITALS: BP 125/61
[2020-05-04 13:08] VITALS: BP 125/61
--- NOTE | 2020-05-04 14:20 | NUR ---
PT DISCHARGED, WALKED TO HOSPITAL LOBBY, ID BAND REMOVED, IV CATHETER REMOVED, INTACT. PT DISCHARGE PACKET GIVEN, DISCUSSED MEDICATIONS, MOA, SIDE EFFECTS WITH PATIENT. EDUCATED ON IMPORTANCE OF HEALTHY DIET, INCREASE FIBER, DIABETES MANAGEMENT, MEDICATION ADHERANCE, TO SEE MD WITHIN 3 BUSINESS DAYS, PT VERBALLY UNDERSTOOD. PT STABLE UPON DISCHARGE.
== END 2020-05-04 14:00 | disposition home or self-care (01) ==
LOC: MED 10:12 → MTU 12:11
PROC: 30233N1 Transfusion of Nonautologous Red Blood Cells into Peripheral Vein, Percutaneous Approach (ICD-10-PCS; 2020-05-02)
PROC: 0DBL8ZZ Excision of Transverse Colon, Via Natural or Artificial Opening Endoscopic (ICD-10-PCS; 2020-05-03)
PROC: 0DBN8ZZ Excision of Sigmoid Colon, Via Natural or Artificial Opening Endoscopic (ICD-10-PCS; principal; 2020-05-03 14:30)
DX: K74.60 Unspecified cirrhosis of liver (principal); E43 Unspecified severe protein-calorie malnutrition; D61.818 Other pancytopenia; K21.01 Gastro-esophageal reflux disease with esophagitis, with bleeding; E66.01 Morbid (severe) obesity due to excess calories; E11.65 Type 2 diabetes mellitus with hyperglycemia; E86.0 Dehydration; M79.89 Other specified soft tissue disorders; I85.11 Secondary esophageal varices with bleeding; R18.8 Other ascites; I50.9 Heart failure, unspecified; K76.0 Fatty (change of) liver, not elsewhere classified; K57.30 Diverticulosis of large intestine without perforation or abscess without bleeding; K42.9 Umbilical hernia without obstruction or gangrene; I08.1 Rheumatic disorders of both mitral and tricuspid valves; D50.9 Iron deficiency anemia, unspecified; Z20.822 Contact with and (suspected) exposure to COVID-19; Z79.899 Other long term (current) drug therapy; Z80.3 Family history of malignant neoplasm of breast; Z83.3 Family history of diabetes mellitus; Z68.42 Body mass index [BMI] 45.0-49.9, adult; Z72.89 Other problems related to lifestyle
CPT/HCPCS: 36415; 71045; 80048; 80076; 80305; 81003; 82150; 82948; 83036; 83690; 83735; 83880; 84100; 84134; 84436; 84443; 84484; 85018; 85025; 85610; 85730; 86886; 86900; 86901; 86920; 87081; 93005; 93925; 93970; 96374; 99285; J0696; J1200; J1940; J2001; J2175; J2250; J2354; J3010; J7030; J7060; J7120; P9016